=== PATIENT | female | born 1960 | race Caucasian/White ===

== ENCOUNTER 2021-12-10 18:16 | Inpatient (IN) ==
[2021-12-10 19:10] LABS: Eosinophils % 0.6 %; Hematocrit 18.5 % (35.3-44.9); Mean Corpuscular HGB Conc 29.7 g/dL (31.6-35.5); Red Cell Distribution Width 16.9 % (11.5-14.5)
[2021-12-10 19:11] LABS: Basophils % 0.4 %; Immature Granulocytes % 0.6 % (0-4); Lymphocytes # 3.5 K/mcL (0.6-4.6); Lymphocytes % 50.8 %; Mean Corpuscular Hemoglobin 30.1 pg (28.0-33.3); Mean Corpuscular Volume 101.1 fL (83.0-100.0); Mean Platelet Volume 11.1 fL (9.4-12.4); Monocytes # 0.5 K/mcL (0.0-1.3); Monocytes % 7.6 %; Neutrophils # 2.8 K/mcL (1.6-8.9); Platelet Count 183 K/mcL (140-400); Red Blood Count 1.83 M/mcL (3.82-4.97); White Blood Count 6.9 K/mcL (4.3-11.1)
[2021-12-10 19:18] LABS: INR 1.2; Prothrombin Time 13.9 Seconds (9.4-12.1)
[2021-12-10 19:21] LABS: Activated Partial Thrombo Time 33.9 Seconds (26.0-36.0); Hemoglobin 5.5 g/dL (11.5-15.4)
[2021-12-10 19:29] LABS: % Iron Saturation 12 % (15-50); Alanine Aminotransferase 12 Units/L (7-52); Albumin 4.3 g/dL (3.5-5.7); Alkaline Phosphatase 34 Units/L (34-104); Aspartate Amino Transferase 14 Units/L (13-39); BUN/Creatinine Ratio 21 (6-26); Bilirubin,Indirect 0.4 mg/dL (0.0-1.0); Bilirubin,Total 0.4 mg/dL (0.3-1.0); Blood Urea Nitrogen 67 mg/dL (6-20); Calcium 9.4 mg/dL (8.6-10.3); Carbon Dioxide 18 mEq/L (23-29); Chloride 106 mEq/L (98-107); Globulin 4.4 g/dL (2.4-3.5); Glucose 207 mg/dL (70-105); Iron 48 mcg/dL (50-170); Osmolality,Calculated 307 (280-300); Sodium 136 mEq/L (136-145); Total Protein 8.7 g/dL (6.4-8.9); Transferrin 287 mg/dL (203-362); Troponin I < 0.03 ng/mL (< 0.04); eGFR For African Americans 18 (> 60); eGFR For Non-African Americans 15 (> 60)
[2021-12-10] MEDS ORDERED: 0.9 % Sodium Chloride 500 ML ONE (19:46)
[2021-12-10] MEDS ORDERED: Acetaminophen 325 MG TABLET PO PRN (21:32)
[2021-12-10] MEDS ORDERED: Ondansetron 4 MG/2 ML VIAL IVP PRN (21:32)
[2021-12-10] MEDS ORDERED: Naloxone 0.4 MG/ML INJ IVP PRN (21:32)
[2021-12-10 22:21] LABS: Ferritin 144 ng/mL (10-120); Folate 11.8 ng/mL (3.0-16.0)
[2021-12-10] MEDS ORDERED: 0.9 % Sodium Chloride 250 ML ONE (23:15)
[2021-12-11] MEDS ORDERED: Melatonin 3 MG TABLET PO PRN (00:35)
[2021-12-11] MEDS: Gabapentin 300 MG CAPSULE PO SCH ×2 (00:49→22:11)
[2021-12-11] MEDS: 0.9 % Sodium Chloride 1,000 ML IVC SCH ×2 (01:52→10:17)
[2021-12-11 04:02] LABS: Basophils % 0.7 %; Eosinophils % 0.7 %; Hematocrit 21.9 % (35.3-44.9); Hemoglobin 6.7 g/dL (11.5-15.4); Immature Granulocytes % 0.7 % (0-4); Lymphocytes # 2.6 K/mcL (0.6-4.6); Lymphocytes % 56.8 %; Mean Corpuscular HGB Conc 30.6 g/dL (31.6-35.5); Mean Corpuscular Hemoglobin 30.2 pg (28.0-33.3); Mean Corpuscular Volume 98.6 fL (83.0-100.0); Mean Platelet Volume 11.1 fL (9.4-12.4); Monocytes # 0.4 K/mcL (0.0-1.3); Monocytes % 8.5 %; Neutrophils # 1.5 K/mcL (1.6-8.9); Platelet Count 144 K/mcL (140-400); Red Blood Count 2.22 M/mcL (3.82-4.97); Red Cell Distribution Width 16.7 % (11.5-14.5); Segmented Neutrophils % 32.6 %; White Blood Count 4.6 K/mcL (4.3-11.1)
[2021-12-11 04:37] LABS: Platelet Estimate Normal (Normal)
[2021-12-11] MEDS ORDERED: *HR* Dextrose 50 % in Water (Syg) 50 ML SYRINGE IVP PRN ×2 (05:41→07:32)
[2021-12-11] MEDS ORDERED: D5% in Water 1,000 ML IVC PRN ×2 (05:41→07:32)
[2021-12-11] MEDS ORDERED: Dextrose Gel 15 GM/37.5 ML TUBE PO PRN ×4 (05:41→07:32)
[2021-12-11] MEDS: Pantoprazole 40 MG VIAL IVP SCH ×2 (05:49→17:15)
[2021-12-11 07:57] LABS: Protein/Creatinine Ratio,Urine 3.44 mg/mg (0.00-0.20)
[2021-12-11 08:07] LABS: Bacteria,Urine Few per hpf (None-Few); Bilirubin,Urine Negative (Negative); Blood,Urine Negative (Negative); Clarity,Urine Clear (Clear); Color,Urine Colorless (Yellow); Glucose,Urine (UA) 300 mg/dL (Normal); Ketones,Urine Negative (Negative); Leukocyte Esterase,Urine Moderate (Negative); Mucus,Urine Few per lpf (None-Few); Nitrite,Urine Negative (Negative); Protein,Urine 50 mg/dL (Neg-Trace); RBC,Urine 0-3 per hpf (0-3); Specific Gravity,Urine 1.012 (1.010-1.025); Urobilinogen,Urine Normal (Normal); WBC,Urine 15-30 per hpf (0-3)
[2021-12-11] MEDS: Insulin LISPRO 300 UNITS/3 ML VIAL SUBQ SCH ×2 (11:34→17:05)
[2021-12-11] MEDS ORDERED: Cyanocobalamin (B-12) 1,000 MCG/ML VIAL SQ ONE (11:55)
[2021-12-11 11:58] LABS: Hematocrit 25.2 % (35.3-44.9); Hemoglobin 7.9 g/dL (11.5-15.4)
[2021-12-11 12:18] LABS: Albumin 4.2 g/dL (3.5-5.7); Calcium 9.6 mg/dL (8.6-10.3); Phosphorous 4.6 mg/dL (2.7-4.5); Potassium 4.1 mEq/L (3.5-5.1)
[2021-12-11 12:20] LABS: Phosphorous 4.9 mg/dL (2.7-4.5); Uric Acid 8.9 mg/dL (2.3-7.6)
[2021-12-11 12:34] LABS: Thyroid Stimulating Hormone 2.987 mcIU/mL (0.340-5.600)
[2021-12-11 13:59] LABS: Hepatitis B Surface Antigen Nonreactive (Nonreactive)
[2021-12-11 14:28] LABS: Hepatitis B Core IgM Nonreactive (Nonreactive); Hepatitis C Virus Antibody Nonreactive (Nonreactive)
[2021-12-11 14:30] LABS: Hepatitis A Antibody IgM Nonreactive (Nonreactive)
[2021-12-11] MEDS ORDERED: Gabapentin 300 MG CAPSULE PO SCH (21:00)
[2021-12-11] MEDS: Melatonin 3 MG TABLET PO SCH (22:11)
[2021-12-11] MEDS: Latanoprost 2.5 ML BOTTLE BOTH EYES SCH (22:13)
[2021-12-12] MEDS: Insulin LISPRO 300 UNITS/3 ML VIAL SUBQ SCH ×4 (00:40→17:22)
[2021-12-12] MEDS: Pantoprazole 40 MG VIAL IVP SCH ×2 (05:13→17:22)
[2021-12-12 05:56] LABS: Basophils % 0.5 %; Eosinophils % 0.5 %; Hematocrit 25.3 % (35.3-44.9); Hemoglobin 7.9 g/dL (11.5-15.4); Immature Granulocytes % 0.7 % (0-4); Lymphocytes # 2.1 K/mcL (0.6-4.6); Lymphocytes % 48.1 %; Mean Corpuscular HGB Conc 31.2 g/dL (31.6-35.5); Mean Corpuscular Hemoglobin 29.9 pg (28.0-33.3); Mean Corpuscular Volume 95.8 fL (83.0-100.0); Mean Platelet Volume 10.9 fL (9.4-12.4); Monocytes # 0.4 K/mcL (0.0-1.3); Monocytes % 8.8 %; Neutrophils # 1.8 K/mcL (1.6-8.9); Platelet Count 148 K/mcL (140-400); Red Blood Count 2.64 M/mcL (3.82-4.97); Segmented Neutrophils % 41.4 %; White Blood Count 4.4 K/mcL (4.3-11.1)
[2021-12-12 06:13] LABS: % Iron Saturation 14 % (15-50); Iron 56 mcg/dL (50-170); Transferrin 276 mg/dL (203-362)
[2021-12-12 06:21] LABS: Calcium 9.8 mg/dL (8.6-10.3); Magnesium 1.7 mg/dL (1.6-2.6); Potassium 3.4 mEq/L (3.5-5.1)
[2021-12-12] MEDS ORDERED: Cyanocobalamin (B-12) 1,000 MCG/ML VIAL SQ ONE (08:21)
[2021-12-12] MEDS ORDERED: Iron Sucrose Complex 200 MG in 0.9 % Sodium Chloride 100 ML IVPB ONE (08:22)
[2021-12-12] MEDS: Cholecalciferol (D-3) 1,000 UNIT (25MCG) TABLET PO SCH (08:47)
[2021-12-12] MEDS: atenoloL 50 MG TABLET PO SCH (08:47)
[2021-12-12] MEDS: Loratadine 10 MG TABLET PO SCH (08:47)
[2021-12-12] MEDS: Zinc Sulfate 220 MG CAPSULE PO SCH (08:47)
[2021-12-12] MEDS: Sodium Bicarbonate 75 MEQ in 0.45 % Sodium Chloride 1,000 ML IVC SCH ×2 (08:48→22:11)
[2021-12-12] MEDS ORDERED: amLODIPine 5 MG TABLET PO SCH (09:00)
[2021-12-12 10:37] LABS: Complement C3 144 mg/dL (87-200)
[2021-12-12] MEDS: Gabapentin 300 MG CAPSULE PO SCH (22:10)
[2021-12-12] MEDS: Melatonin 3 MG TABLET PO SCH (22:10)
[2021-12-12] MEDS: Latanoprost 2.5 ML BOTTLE BOTH EYES SCH (22:12)
[2021-12-13] MEDS: Insulin LISPRO 300 UNITS/3 ML VIAL SUBQ SCH ×2 (01:19→08:23)
[2021-12-13 04:39] VITALS: TEMP 98.1
[2021-12-13 04:47] LABS: Basophils % 0.5 %; Eosinophils % 0.5 %; Hematocrit 25.2 % (35.3-44.9); Hemoglobin 7.9 g/dL (11.5-15.4); Immature Granulocytes % 0.3 % (0-4); Lymphocytes # 1.9 K/mcL (0.6-4.6); Lymphocytes % 51.4 %; Mean Corpuscular HGB Conc 31.3 g/dL (31.6-35.5); Mean Corpuscular Hemoglobin 30.3 pg (28.0-33.3); Mean Corpuscular Volume 96.6 fL (83.0-100.0); Mean Platelet Volume 11.1 fL (9.4-12.4); Monocytes # 0.3 K/mcL (0.0-1.3); Monocytes % 7.6 %; Neutrophils # 1.5 K/mcL (1.6-8.9); Platelet Count 133 K/mcL (140-400); Red Blood Count 2.61 M/mcL (3.82-4.97); Red Cell Distribution Width 16.4 % (11.5-14.5); Segmented Neutrophils % 39.7 %; White Blood Count 3.7 K/mcL (4.3-11.1)
[2021-12-13 04:57] LABS: Calcium 9.5 mg/dL (8.6-10.3); Magnesium 1.8 mg/dL (1.6-2.6); Potassium 3.6 mEq/L (3.5-5.1)
[2021-12-13] MEDS: Pantoprazole 40 MG VIAL IVP SCH (06:32)
[2021-12-13 07:30] VITALS: BP 144/84; PULSE 72; O2SAT 99
[2021-12-13] MEDS: Cholecalciferol (D-3) 1,000 UNIT (25MCG) TABLET PO SCH (08:22)
[2021-12-13] MEDS: Zinc Sulfate 220 MG CAPSULE PO SCH (08:22)
[2021-12-13] MEDS: Loratadine 10 MG TABLET PO SCH (08:23)
[2021-12-13] MEDS: atenoloL 50 MG TABLET PO SCH (08:23)
== END 2021-12-13 11:20 | disposition home or self-care (01) | DRG 683 ==
LOC: 2ANU 18:16 → EMEROOARM 18:16 → SUATTDRO 21:30 → 2ANU 22:31
PROVIDERS: ADMIT Internal Medicine; ATTEND Pharmacist

== ENCOUNTER 2022-01-02 15:38 | Inpatient (IN) ==
[2022-01-02 21:19] LABS: Basophils % 0.5 %; Eosinophils % 0.2 %; Hematocrit 23.4 % (35.3-44.9); Hemoglobin 7.4 g/dL (11.5-15.4); Immature Granulocytes % 0.7 % (0-4); Immature Platelets 5.7 % (1.1-6.1); Lymphocytes # 2.2 K/mcL (0.6-4.6); Lymphocytes % 53.1 %; Mean Corpuscular HGB Conc 31.6 g/dL (31.6-35.5); Mean Corpuscular Hemoglobin 30.3 pg (28.0-33.3); Mean Corpuscular Volume 95.9 fL (83.0-100.0); Mean Platelet Volume 12.2 fL (9.4-12.4); Monocytes # 0.2 K/mcL (0.0-1.3); Monocytes % 5.9 %; Neutrophils # 1.6 K/mcL (1.6-8.9); Platelet Count 106 K/mcL (140-400); Red Blood Count 2.44 M/mcL (3.82-4.97); Red Cell Distribution Width 15.5 % (11.5-14.5); Segmented Neutrophils % 39.6 %; White Blood Count 4.1 K/mcL (4.3-11.1)
[2022-01-02 21:35] LABS: Calcium 9.1 mg/dL (8.6-10.3)
[2022-01-02 21:37] LABS: Bilirubin,Urine Negative (Negative); Blood,Urine Trace (Negative); Clarity,Urine Clear (Clear); Color,Urine Colorless (Yellow); Glucose,Urine (UA) 100 mg/dL (Normal); Ketones,Urine Negative (Negative); Leukocyte Esterase,Urine Negative (Negative); Mucus,Urine Few per lpf (None-Few); Nitrite,Urine Negative (Negative); Protein,Urine 50 mg/dL (Neg-Trace); RBC,Urine 0-3 per hpf (0-3); Specific Gravity,Urine 1.011 (1.010-1.025); Squamous Epithelial Cell,Urine Few per hpf (None-Few); Urobilinogen,Urine Normal (Normal); WBC,Urine 0-3 per hpf (0-3)
[2022-01-02 21:39] LABS: Platelet Estimate Decreased (Normal)
[2022-01-02 21:40] LABS: Reactive Lymphocytes Present (Not Present)
[2022-01-02] MEDS ORDERED: Naloxone 0.4 MG/ML INJ IVP PRN (23:03)
[2022-01-02] MEDS ORDERED: Ondansetron ODT 4 MG TAB.RAPDIS SL PRN (23:03)
[2022-01-02] MEDS ORDERED: *HR* OxyCODONE Immed Rel 5 MG TABLET PO PRN (23:03)
[2022-01-02] MEDS ORDERED: *HR* HYDROcodone/Acet 5/325 mg TABLET PO PRN (23:03)
[2022-01-02] MEDS ORDERED: Melatonin 3 MG TABLET PO PRN (23:03)
[2022-01-02] MEDS ORDERED: Acetaminophen 325 MG TABLET PO PRN (23:03)
[2022-01-02] MEDS: Insulin LISPRO 300 UNITS/3 ML VIAL SUBQ SCH (23:30)
[2022-01-02] MEDS: 0.9 % Sodium Chloride 1,000 ML IVC SCH (23:30)
[2022-01-02] MEDS ORDERED: *HR* Dextrose 50 % in Water (Syg) 50 ML SYRINGE IVP PRN (23:47)
[2022-01-02] MEDS ORDERED: Dextrose Gel 15 GM/37.5 ML TUBE PO PRN ×2 (23:47)
[2022-01-02] MEDS ORDERED: D5% in Water 1,000 ML IVC PRN (23:47)
[2022-01-03 02:19] LABS: Adenovirus Not Detected (Not Detect); Coronavirus 229E Not Detected (Not Detect); Coronavirus HKU1 Not Detected (Not Detect); Coronavirus NL63 Not Detected (Not Detect); Coronavirus OC43 Not Detected (Not Detect)
[2022-01-03 02:20] LABS: Bordetella Pertussis Not Detected (Not Detect); Chlamydophila pneumoniae Not Detected (Not Detect); Human Metapneumovirus Not Detected (Not Detect); Human Rhinovirus/Enterovirus Not Detected (Not Detect); Influenza A Subtype 2009 H1 Not Detected (Not Detect); Influenza B Not Detected (Not Detect); Mycoplasma pneumoniae Not Detected (Not Detect); Parainfluenza Virus 1 Not Detected (Not Detect); Parainfluenza Virus 2 Not Detected (Not Detect); Parainfluenza Virus 3 Not Detected (Not Detect); Parainfluenza Virus 4 Not Detected (Not Detect); Respiratory Syncytial Virus Not Detected (Not Detect); SARS-CoV-2 DETECTED (Not Detect)
[2022-01-03] MEDS: Insulin LISPRO 300 UNITS/3 ML VIAL SUBQ SCH ×3 (06:28→21:37)
[2022-01-03 08:08] LABS: Immature Granulocytes % 0.5 % (0-4); Red Cell Distribution Width 15.6 % (11.5-14.5)
[2022-01-03 08:10] LABS: Basophils % 0.7 %; Eosinophils % 0.5 %; Hematocrit 24.1 % (35.3-44.9); Hemoglobin 7.5 g/dL (11.5-15.4); Immature Platelets 5.1 % (1.1-6.1); Lymphocytes # 2.6 K/mcL (0.6-4.6); Lymphocytes % 60.9 %; Mean Corpuscular HGB Conc 31.1 g/dL (31.6-35.5); Mean Corpuscular Hemoglobin 30.5 pg (28.0-33.3); Mean Platelet Volume 11.3 fL (9.4-12.4); Monocytes # 0.2 K/mcL (0.0-1.3); Monocytes % 5.3 %; Neutrophils # 1.4 K/mcL (1.6-8.9); Platelet Count 100 K/mcL (140-400); Red Blood Count 2.46 M/mcL (3.82-4.97); Segmented Neutrophils % 32.1 %; White Blood Count 4.3 K/mcL (4.3-11.1)
[2022-01-03 08:17] LABS: Albumin 4.2 g/dL (3.5-5.7); Bilirubin,Total 0.5 mg/dL (0.3-1.0); Calcium 9.2 mg/dL (8.6-10.3); Chol/HDL Ratio 3.3 (0-4.9); Globulin 4.1 g/dL (2.4-3.5); Magnesium 1.6 mg/dL (1.6-2.6); Phosphorous 4.5 mg/dL (2.7-4.5); Potassium 3.8 mEq/L (3.5-5.1); Total Protein 8.3 g/dL (6.4-8.9)
[2022-01-03] MEDS: 0.9 % Sodium Chloride 1,000 ML IVC SCH (12:32)
[2022-01-03] MEDS ORDERED: *HR* FentaNYL (PF) 100 MCG/2 ML VIAL ONE (15:17)
[2022-01-03] MEDS ORDERED: *HR* Midazolam HCl 2 MG/2 ML VIAL ONE (15:18)
[2022-01-03] MEDS ORDERED: 0.9 % Sodium Chloride 500 ML ONE (15:18)
[2022-01-03] MEDS ORDERED: *HR* FentaNYL (PF) 100 MCG/2 ML VIAL IVP ONE (15:30)
[2022-01-03] MEDS ORDERED: *HR* Midazolam HCl 2 MG/2 ML VIAL IVP ONE (15:30)
[2022-01-03] MEDS: allopurinoL 300 MG TABLET PO SCH (18:32)
[2022-01-03] MEDS: Cyanocobalamin (B-12) 1,000 MCG/ML VIAL SQ SCH (18:32)
[2022-01-03 20:02] LABS: Uric Acid 8.2 mg/dL (2.3-7.6)
[2022-01-03] MEDS: Apixaban 2.5 MG TABLET PO SCH (21:36)
[2022-01-03] MEDS: Acyclovir 200 MG CAPSULE PO SCH (21:37)
[2022-01-03] MEDS: Gabapentin 300 MG CAPSULE PO SCH (21:37)
[2022-01-04] MEDS ORDERED: EPINEPHrine 1 MG/ML VIAL SQ PRN ×2
[2022-01-04] MEDS ORDERED: *HR* LORazepam 2 MG/ML VIAL IVP PRN
[2022-01-04] MEDS ORDERED: Famotidine 20 MG/2 ML VIAL IVP PRN ×2
[2022-01-04] MEDS ORDERED: Hydrocortisone Sodium Succ 100 MG/2 ML VIAL IVP PRN ×2
[2022-01-04] MEDS ORDERED: Prochlorperazine 10 MG/2 ML VIAL IVP PRN
[2022-01-04] MEDS ORDERED: Albuterol 2.5 MG/3 ML NEBULIZER IH PRN ×2
[2022-01-04] MEDS ORDERED: *HR* LORazepam 0.5 MG TABLET PO PRN
[2022-01-04 05:33] LABS: Basophils % 0.7 %; Red Blood Count 2.32 M/mcL (3.82-4.97); Red Cell Distribution Width 15.6 % (11.5-14.5)
[2022-01-04 05:35] LABS: Eosinophils % 0.7 %; Hematocrit 22.8 % (35.3-44.9); Immature Granulocytes % 0.7 % (0-4); Lymphocytes # 1.9 K/mcL (0.6-4.6); Lymphocytes % 66.2 %; Mean Corpuscular HGB Conc 30.7 g/dL (31.6-35.5); Mean Corpuscular Hemoglobin 30.2 pg (28.0-33.3); Mean Corpuscular Volume 98.3 fL (83.0-100.0); Mean Platelet Volume 11.3 fL (9.4-12.4); Monocytes # 0.2 K/mcL (0.0-1.3); Monocytes % 5.8 %; Neutrophils # 0.8 K/mcL (1.6-8.9); Segmented Neutrophils % 25.9 %; White Blood Count 2.9 K/mcL (4.3-11.1)
[2022-01-04 05:43] LABS: Platelet Count 82 K/mcL (140-400)
[2022-01-04 05:45] LABS: Calcium 8.8 mg/dL (8.6-10.3); Potassium 3.5 mEq/L (3.5-5.1)
[2022-01-04 05:49] LABS: % Iron Saturation 30 % (15-50); Iron 83 mcg/dL (50-170); Transferrin 197 mg/dL (203-362)
[2022-01-04 06:06] LABS: Ferritin 346 ng/mL (10-120)
[2022-01-04 06:18] LABS: Platelet Estimate Decreased (Normal)
[2022-01-04 06:19] LABS: Hypochromasia Present (Not Present)
[2022-01-04] MEDS ORDERED: RASBURICASE IV ONE (07:57)
[2022-01-04] MEDS ORDERED: SODIUM CHLORIDE 0.9% IV ONE (07:57)
[2022-01-04] MEDS: Acyclovir 200 MG CAPSULE PO SCH ×2 (08:34→20:24)
[2022-01-04] MEDS: allopurinoL 300 MG TABLET PO SCH (08:35)
[2022-01-04] MEDS: Apixaban 2.5 MG TABLET PO SCH ×2 (08:36→20:24)
[2022-01-04] MEDS: Cyanocobalamin (B-12) 1,000 MCG/ML VIAL SQ SCH (08:37)
[2022-01-04] MEDS: Insulin LISPRO 300 UNITS/3 ML VIAL SUBQ SCH ×4 (08:40→20:24)
[2022-01-04] MEDS ORDERED: dexAMETHasone 4 MG TABLET PO ONE (10:27)
[2022-01-04 13:51] LABS: Hematocrit 22.9 % (35.3-44.9)
[2022-01-04] MEDS: Gabapentin 300 MG CAPSULE PO SCH (20:24)
[2022-01-04] MEDS ORDERED: Latanoprost 2.5 ML BOTTLE BOTH EYES SCH (21:00)
[2022-01-04] MEDS ORDERED: Melatonin 3 MG TABLET PO SCH (21:00)
[2022-01-04] MEDS ORDERED: Insulin DETEMIR 100 UNIT/ML X5UNITS SUBQ SCH (21:00)
[2022-01-05 05:40] LABS: Hemoglobin 7.1 g/dL (11.5-15.4); Immature Granulocytes % 0.9 % (0-4); Mean Platelet Volume 11.4 fL (9.4-12.4); Red Cell Distribution Width 15.3 % (11.5-14.5)
[2022-01-05 05:42] LABS: Basophils % 0.2 %; Hematocrit 23.2 % (35.3-44.9); Immature Platelets 5.3 % (1.1-6.1); Lymphocytes # 1.5 K/mcL (0.6-4.6); Mean Corpuscular HGB Conc 30.6 g/dL (31.6-35.5); Mean Corpuscular Volume 97.9 fL (83.0-100.0); Monocytes # 0.1 K/mcL (0.0-1.3); Monocytes % 1.4 %; Neutrophils # 4.7 K/mcL (1.6-8.9); Red Blood Count 2.37 M/mcL (3.82-4.97); Segmented Neutrophils % 73.5 %; White Blood Count 6.4 K/mcL (4.3-11.1)
[2022-01-05 05:59] LABS: Calcium 9.4 mg/dL (8.6-10.3); Potassium 4.2 mEq/L (3.5-5.1)
[2022-01-05 06:02] LABS: Platelet Count 93 K/mcL (140-400)
[2022-01-05 06:25] LABS: Hypochromasia Present (Not Present); Platelet Estimate Decreased (Normal)
[2022-01-05] MEDS ORDERED: OMEPRAZOLE 20 MG PO SCH (06:30)
[2022-01-05] MEDS ORDERED: atenoloL 50 MG TABLET PO SCH (09:00)
[2022-01-05] MEDS ORDERED: Zinc Sulfate 220 MG CAPSULE PO SCH (09:00)
[2022-01-05] MEDS ORDERED: amLODIPine 5 MG TABLET PO SCH (09:00)
[2022-01-05] MEDS: Acyclovir 200 MG CAPSULE PO SCH (10:35)
[2022-01-05] MEDS: Apixaban 2.5 MG TABLET PO SCH (10:36)
[2022-01-05] MEDS: allopurinoL 300 MG TABLET PO SCH (10:36)
[2022-01-05] MEDS: Cyanocobalamin (B-12) 1,000 MCG/ML VIAL SQ SCH (10:37)
[2022-01-05] MEDS: Insulin LISPRO 300 UNITS/3 ML VIAL SUBQ SCH ×2 (10:37→11:48)
[2022-01-05 13:51] VITALS: BP 145/77; PULSE 96; TEMP 99.2; O2SAT 99
== END 2022-01-05 14:47 | disposition home or self-care (01) | DRG 840 ==
LOC: EMEROOARM 15:38 → 2ANU 15:38 → SUATTDRO 22:59 → 2ANU 23:50
PROVIDERS: ADMIT Internal Medicine; ATTEND Family Medicine

== ENCOUNTER 2022-01-24 11:13 | Observation (INO) ==
[2022-01-24] MEDS ORDERED: dexAMETHasone 4 MG TABLET PO STA (13:21)
[2022-01-24 14:37] LABS: Basophils % 0.2 %; Eosinophils # 0.1 K/mcL (0.0-0.6); Eosinophils % 1.3 %; Hematocrit 19.8 % (35.3-44.9); Immature Granulocytes % 1.1 % (0-4); Lymphocytes # 0.8 K/mcL (0.6-4.6); Lymphocytes % 16.4 %; Mean Corpuscular HGB Conc 30.3 g/dL (31.6-35.5); Mean Corpuscular Hemoglobin 30.3 pg (28.0-33.3); Mean Platelet Volume 12.5 fL (9.4-12.4); Monocytes # 0.1 K/mcL (0.0-1.3); Monocytes % 2.4 %; Neutrophils # 3.6 K/mcL (1.6-8.9); Platelet Count 115 K/mcL (140-400); Red Blood Count 1.98 M/mcL (3.82-4.97); Red Cell Distribution Width 16.7 % (11.5-14.5); Segmented Neutrophils % 78.6 %; White Blood Count 4.6 K/mcL (4.3-11.1)
[2022-01-24 14:46] LABS: Calcium 8.6 mg/dL (8.6-10.3); Potassium 4.3 mEq/L (3.5-5.1)
[2022-01-24] MEDS ORDERED: Ondansetron ODT 4 MG TAB.RAPDIS SL PRN (17:10)
[2022-01-24] MEDS ORDERED: Melatonin 3 MG TABLET PO PRN (17:10)
[2022-01-24] MEDS ORDERED: Naloxone 0.4 MG/ML INJ IVP PRN (17:10)
[2022-01-24 19:18] LABS: Basophils % 0.4 %; Eosinophils % 0.4 %; Hematocrit 21.2 % (35.3-44.9); Hemoglobin 6.4 g/dL (11.5-15.4); Immature Granulocytes % 1.3 % (0-4); Lymphocytes # 0.7 K/mcL (0.6-4.6); Lymphocytes % 13.7 %; Mean Corpuscular HGB Conc 30.2 g/dL (31.6-35.5); Mean Corpuscular Hemoglobin 29.8 pg (28.0-33.3); Mean Corpuscular Volume 98.6 fL (83.0-100.0); Mean Platelet Volume 12.4 fL (9.4-12.4); Monocytes # 0.1 K/mcL (0.0-1.3); Monocytes % 1.9 %; Neutrophils # 4.3 K/mcL (1.6-8.9); Platelet Count 117 K/mcL (140-400); Red Blood Count 2.15 M/mcL (3.82-4.97); Red Cell Distribution Width 18.5 % (11.5-14.5); Segmented Neutrophils % 82.3 %; White Blood Count 5.3 K/mcL (4.3-11.1)
[2022-01-24] MEDS ORDERED: *HR* Dextrose 50 % in Water (Syg) 50 ML SYRINGE IVP PRN (20:23)
[2022-01-24] MEDS ORDERED: Dextrose Gel 15 GM/37.5 ML TUBE PO PRN ×2 (20:23)
[2022-01-24] MEDS ORDERED: D5% in Water 1,000 ML IVC PRN (20:23)
[2022-01-24] MEDS ORDERED: 0.9 % Sodium Chloride 250 ML ONE (20:32)
[2022-01-24] MEDS ORDERED: Insulin LISPRO 300 UNITS/3 ML VIAL SUBQ SCH (21:00)
[2022-01-24] MEDS: Gabapentin 300 MG CAPSULE PO SCH (22:50)
[2022-01-25 03:25] LABS: Basophils % 0.2 %; Hematocrit 21.2 % (35.3-44.9); Hemoglobin 6.7 g/dL (11.5-15.4); Immature Granulocytes % 1.6 % (0-4); Lymphocytes # 0.7 K/mcL (0.6-4.6); Lymphocytes % 15.6 %; Mean Corpuscular HGB Conc 31.6 g/dL (31.6-35.5); Mean Corpuscular Hemoglobin 30.3 pg (28.0-33.3); Mean Corpuscular Volume 95.9 fL (83.0-100.0); Mean Platelet Volume 12.8 fL (9.4-12.4); Monocytes # 0.1 K/mcL (0.0-1.3); Neutrophils # 3.6 K/mcL (1.6-8.9); Platelet Count 109 K/mcL (140-400); Red Blood Count 2.21 M/mcL (3.82-4.97); Red Cell Distribution Width 18.3 % (11.5-14.5); Segmented Neutrophils % 80.6 %; White Blood Count 4.4 K/mcL (4.3-11.1)
[2022-01-25 03:32] LABS: INR 1.4; Prothrombin Time 15.6 Seconds (9.4-12.1)
[2022-01-25 03:35] LABS: Activated Partial Thrombo Time 29.7 Seconds (26.0-36.0)
[2022-01-25 03:54] LABS: Calcium 8.1 mg/dL (8.6-10.3); Phosphorous 4.5 mg/dL (2.7-4.5); Potassium 4.5 mEq/L (3.5-5.1)
[2022-01-25] MEDS ORDERED: 0.9 % Sodium Chloride 250 ML ONE ×2 (04:52→20:21)
[2022-01-25] MEDS ORDERED: Insulin LISPRO 300 UNITS/3 ML VIAL SUBQ SCH ×3 (07:30→21:00)
[2022-01-25] MEDS ORDERED: 0.9 % Sodium Chloride 1,000 ML IVC ONE (08:11)
[2022-01-25] MEDS ORDERED: Insulin LISPRO 300 UNITS/3 ML VIAL SUBQ ONE (08:13)
[2022-01-25] MEDS ORDERED: Insulin Human Regular 10 UNIT in 0.9 % Sodium Chloride 10 ML IV ONE (09:11)
[2022-01-25] MEDS ORDERED: Acetaminophen 325 MG TABLET PO PRN (09:23)
[2022-01-25] MEDS ORDERED: 0.9 % Sodium Chloride 1,000 ML IVC SCH (10:00)
[2022-01-25 10:11] LABS: Basophils % 0.2 %; Hematocrit 21.9 % (35.3-44.9); Lymphocytes # 0.9 K/mcL (0.6-4.6); Lymphocytes % 13.3 %; Mean Platelet Volume 12.7 fL (9.4-12.4); Monocytes # 0.2 K/mcL (0.0-1.3); Monocytes % 2.5 %; Neutrophils # 5.2 K/mcL (1.6-8.9); Nucleated Red Blood Cells 0.3 /100 WBC (0); Platelet Count 129 K/mcL (140-400); Red Blood Count 2.33 M/mcL (3.82-4.97); Red Cell Distribution Width 18.4 % (11.5-14.5); White Blood Count 6.4 K/mcL (4.3-11.1)
[2022-01-25 10:22] LABS: Calcium 8.3 mg/dL (8.6-10.3); Potassium 4.2 mEq/L (3.5-5.1)
[2022-01-25] MEDS: atenoloL 50 MG TABLET PO SCH (11:01)
[2022-01-25] MEDS ORDERED: Ondansetron ODT 4 MG TAB.RAPDIS SL ONE (12:30)
[2022-01-25] MEDS: dexAMETHasone 4 MG TABLET PO SCH (13:09)
[2022-01-25] MEDS: Patient Taking Own Medication 1 EACH PO SCH (13:16)
[2022-01-25] MEDS ORDERED: Insulin DETEMIR 100 UNIT/ML X5UNITS SUBQ SCH ×2 (14:00→21:00)
[2022-01-25 16:28] LABS: Calcium 8.2 mg/dL (8.6-10.3); Potassium 4.5 mEq/L (3.5-5.1)
[2022-01-25] MEDS ORDERED: Latanoprost 2.5 ML BOTTLE BOTH EYES SCH (21:00)
[2022-01-25] MEDS: Acyclovir 200 MG CAPSULE PO SCH (21:24)
[2022-01-25] MEDS: Apixaban 2.5 MG TABLET PO SCH (21:25)
[2022-01-25] MEDS: Gabapentin 300 MG CAPSULE PO SCH (21:25)
[2022-01-26 05:53] LABS: Basophils % 0.1 %; Hematocrit 25.1 % (35.3-44.9); Immature Granulocytes % 0.9 % (0-4); Lymphocytes # 0.7 K/mcL (0.6-4.6); Lymphocytes % 10.9 %; Mean Corpuscular HGB Conc 31.9 g/dL (31.6-35.5); Mean Corpuscular Hemoglobin 29.9 pg (28.0-33.3); Mean Corpuscular Volume 93.7 fL (83.0-100.0); Mean Platelet Volume 12.2 fL (9.4-12.4); Monocytes # 0.2 K/mcL (0.0-1.3); Monocytes % 2.4 %; Neutrophils # 5.7 K/mcL (1.6-8.9); Platelet Count 121 K/mcL (140-400); Red Blood Count 2.68 M/mcL (3.82-4.97); Segmented Neutrophils % 85.7 %; White Blood Count 6.7 K/mcL (4.3-11.1)
[2022-01-26 06:43] LABS: % Iron Saturation 38 % (15-50); Calcium 8.2 mg/dL (8.6-10.3); Iron 101 mcg/dL (50-170); Potassium 4.3 mEq/L (3.5-5.1); Transferrin 188 mg/dL (203-362)
[2022-01-26 07:00] VITALS: PULSE 83
[2022-01-26] MEDS: dexAMETHasone 4 MG TABLET PO SCH (07:57)
[2022-01-26] MEDS: Apixaban 2.5 MG TABLET PO SCH (07:58)
[2022-01-26] MEDS: atenoloL 50 MG TABLET PO SCH (07:58)
[2022-01-26] MEDS: Acyclovir 200 MG CAPSULE PO SCH (07:58)
[2022-01-26] MEDS: Patient Taking Own Medication 1 EACH PO SCH (07:59)
[2022-01-26] MEDS ORDERED: Insulin LISPRO 300 UNITS/3 ML VIAL SUBQ ONE (08:13)
[2022-01-26] MEDS ORDERED: Patient Taking Own Medication 1 EACH PO SCH (09:00)
[2022-01-26] MEDS ORDERED: Cyanocobalamin (B-12) 1,000 MCG TABLET PO SCH (09:00)
[2022-01-26] MEDS ORDERED: Loratadine 10 MG TABLET PO SCH (09:00)
[2022-01-26] MEDS ORDERED: amLODIPine 5 MG TABLET PO SCH (09:00)
[2022-01-26] MEDS ORDERED: allopurinoL 300 MG TABLET PO SCH (09:00)
[2022-01-26] MEDS ORDERED: Cholecalciferol (D-3) 1,000 UNIT (25MCG) TABLET PO SCH (09:00)
[2022-01-26] MEDS: Insulin LISPRO 300 UNITS/3 ML VIAL SUBQ SCH ×2 (09:03→12:00)
[2022-01-26 10:54] VITALS: BP 143/72; TEMP 98.2; O2SAT 94
[2022-01-26] MEDS ORDERED: Insulin DETEMIR 100 UNIT/ML X5UNITS SUBQ SCH (11:00)
[2022-01-26] MEDS ORDERED: Insulin LISPRO 300 UNITS/3 ML VIAL SUBQ SCH (21:00)
== END 2022-01-26 14:23 | disposition home or self-care (01) ==
LOC: 3ANU 11:13 → EMEROOARM 11:13 → SUATTDRO 14:55 → 3ANU 15:40
PROVIDERS: ADMIT Family Medicine; ATTEND Internal Medicine